=== PATIENT | female | born 2000 | race Two or more races ===

== ENCOUNTER 2025-02-07 12:26 | Emergency (ER) | payer MEDICAID, SELFPAY ==
--- NOTE | 2025-02-07 12:37 | XR_ITS ---
Examination: CT abdomen and pelvis without contrast. Coronal 3-D reconstructions. Sagittal 2-D reconstructions. Date and time of exam: 02/07/2025 at 2:06 p.m. CTDI: vol (mGy): 5.70 DLP: (mGycm): 274 Technique: Axial images of the abdomen have been obtained, 3 mm slice thickness Intravenous contrast material has not been administered. Low dose protocols were performed. One or more of the following dose reduction techniques were used; automated exposure control, adjustment of the mA and/or KV according to patient size, use of iterative reconstruction technique. CLINICAL HISTORY: Hematuria for the last 2 days, right-sided flank pain Findings: In the left kidney there there is an exquisitely tiny early developing calculus in the midportion of the left renal medulla, seen on axial sequence 8 image 81, and coronal sequence 4 image 68.. No other abnormalities are seen in the left kidney. On the right there is slight diffuse swelling of the kidney, there is pelvic caliectasis and there is minimal but definite dilatation of the entire right ureter down to the mid pelvis on the right. Here, at a point about 6 cm above the UVJ there is a tiny 3 mm diameter calculus creating obstructive uropathy In all other respects, the CT appearance of the liver spleen and adrenal glands and pancreas and para-aortic region appears normal. Bowel gas pattern in the small and large bowel appear all right. The uterus is retroverted in the pelvis, otherwise normal. IMPRESSION: 1. There is a 3 mm calculus in the distal right ureter creating mild definite obstructive uropathy 2 there is an exquisitely tiny calculus in the midpole medulla of the left kidney, not currently producing any problems 3. The study is otherwise entirely normal. The patient does have a retroverted uterus.
[2025-02-07 12:39] VITALS: BP 116/80; PULSE 97; RESP 16; TEMP 37.2; O2SAT 98; BMI 23.2
[2025-02-07 13:36] LABS: Collection Type, Urine Clean Catch; Squamous Epithelial Cell,Urine 0 /hpf (0-5)
[2025-02-07 13:36] LABS: Basophils # (Auto) 0.0 Thou/mm3 (0.0-0.2); Basophils % (Auto) 0 % (0-2.5); Eosinophils # (Auto) 0.0 Thou/mm3 (0.0-0.5); Eosinophils % (Auto) 0 % (0-10); Hematocrit 39.3 % (36.0-46.0); Hemoglobin 13.4 g/dL (12.0-16.0); Immature Granulocytes Auto 0.02 Thou/mm3 (0.00-0.00); Lymphocytes # (Auto) 1.4 Thou/mm3 (1.0-4.8); Lymphocytes % (Auto) 17 % (10-50); Mean Corpuscular HGB Conc 34.1 g/dl (31.0-37.0); Mean Corpuscular Hemoglobin 27.5 pg (25.0-35.0); Mean Corpuscular Volume 81 fL (80-100); Monocytes # (Auto) 0.6 Thou/mm3 (0.0-0.8); Monocytes % (Auto) 7 % (0-12); Neutrophils # (Auto) 6.2 Thou/mm3 (1.8-7.7); Neutrophils % (Auto) 75 % (37-80); Nucleated Red Blood Cell # 0.00 Thou/mm3 (0.00-0.00); Nucleated Red Blood Cell % 0 /100 WBC (0); Platelet Count 251 Thou/mm3 (140-440); RDW Standard Deviation 38.1 fL (36.4-46.3); Red Blood Count 4.88 Miln/mm3 (4.00-5.20); White Blood Count 8.2 Thou/mm3 (3.6-11.0)
[2025-02-07] MEDS: KETOROLAC INJ 30 MG/ML VIAL IVP (13:45)
[2025-02-07] MEDS: SODIUM CHLORIDE 0.9% 1000 ML 1,000 ML 999 ML IV (13:45)
[2025-02-07] MEDS: ONDANSETRON INJ 2 MG/ML INJ 2 ML 4 MG IVP (13:46)
[2025-02-07 13:51] LABS: HCG Qualitative,Urine Negative
[2025-02-07 13:52] LABS: Bilirubin,Urine Negative (Negative); Blood,Urine 3+ (Negative); Glucose, Urine Negative (Negative); Ketones,Urine 3+ (Negative); Leukocyte Esterase,Urine Positive (Negative); Nitrite,Urine Negative (Negative); PH,Urine 6.0 (5.0-7.0); Protein,Urine 1+ (Neg - Trace); RBC,Urine 6102 /hpf (0-3); Specific Gravity,Urine 1.026 (1.001-1.035); Urobilinogen,Urine Negative mg/dL (0.0-1.0); WBC,Urine 6 /hpf (0-5)
[2025-02-07 13:55] LABS: Clarity,Urine Cloudy (Clear/Hazy); Color,Urine Light-Red (Lt Yel-Yel)
[2025-02-07 14:02] LABS: Alanine Aminotransferase 10 U/L (10-49); Albumin, Serum 4.7 gm/dL (3.5-5.0); Albumin/Globulin Ratio 1.5 (1.2-2.2); Alkaline Phosphatase 73 U/L (46-116); Anion Gap 13 (7-16); Aspartate Amino Transferase 18 U/L (0-34); BUN/Creatinine Ratio 14 Ratio (12-20); Bilirubin,Total 0.6 mg/dL (0.3-1.2); Blood Urea Nitrogen 10 mg/dL (9-23); Calcium 9.7 mg/dL (8.3-10.6); Calcium (Corrected) 9.7 mg/dL (8.5-10.1); Carbon Dioxide 23.4 mMol/L (20.0-31.0); Chloride 106 mMol/L (98-107); Creatinine (Component) 0.7 mg/dL (0.6-1.3); Estimated Creatinine Clearance 90.0 mL/min (>60); Globulin 3.2 gm/dL (2.3-3.5); Glucose 96 mg/dL (74-106); Lipase 26 U/L (12-53); Osmolality,Calculated 282 (275-295); Potassium 3.6 mMol/L (3.4-5.1); Sodium 142 mMol/L (136-145); Total Protein 7.9 gm/dL (5.7-8.2); eGFR > 60 See Note
[2025-02-07] MEDS: TAMSULOSIN HCL 0.4 MG CAPSULE PO (15:33)
[2025-02-07 15:34] VITALS: BP 115/80; PULSE 78; RESP 16; TEMP 37; O2SAT 98
--- NOTE | 2025-02-07 15:35 | EDNOTE_ITS ---
ED Female Urogenital RME/HPI General Chief complaint: Back Pain/Injury Stated complaint: R) LOWER BACK PAIN, DIFF URINATING, N/V Time Seen by Provider: 02/07/25 12:35 Arrival date/time: 02/07/25 12:26 This is a case of 24-year-old female with no medical history came in in the emergency room due to right flank pain radiating to the right side of the abdomen for 4 days associated with blood in the urine and painful urination persistence of the symptoms this patient decided to sought consult here in the emergency room Limitations: no limitations Related Data Home Medications ?Medication ?Instructions ?Recorded ?Confirmed ferrous sulfate 324 mg (65 mg 324 mg PO TID 04/29/20 0 04/29/20 iron) tablet,delayed release Previous Rx's ?Medication ?Instructions ?Recorded hydrocodone 5 mg-acetaminophen 325 1 tab PO Q12H PRN p ain #7 tabs 10/15/21 mg tablet ibuprofen 400 mg tablet 400 mg PO TID PRN pain #14 t abs 10/15/21 cephalexin 500 mg capsule 500 mg PO QID #40 caps 02/07 hydrocodone 5 mg-acetaminophen 325 1 tab PO Q6H PRN pa in #16 tabs 02/07/25 mg tablet ondansetron 4 mg disintegrating 4 mg PO Q8H #20 tabs 1 04/10/24 tablet tamsulosin 0.4 mg capsule 0.4 mg PO QDAY 10 days #10 c aps 02/07/25 Allergies Allergy/AdvReac Type Severity Reaction Status Date / Time No Known Allergies Allergy Verified 02/07/25 12:29 Review of Systems Review of Systems Systems Reviewed: All systems reviewed, normal except as documented Past Medical History Past Medical History CARDIAC: Negative Cardiac Disorders or Congestive Heart Failure RESPIRATORY: Negative Chronic Obstructive Pulmonary Disease (COPD) or Asthma GENITOURINARY: Negative Renal Disease ENDOCRINE: Negative Diabetes Mellitus Type 1 or Diabetes Mellitus Type 2 HEMATOLOGIC: Positive Anemia; Negative Sickle Cell Disease PSYCHO/SOCIAL: Positive Depression and Anxiety OTHER HISTORY: Positive Blood Transfusions Social History SMOKING STATUS: Never smoker SUBSTANCE USE: does not use ED Exam General Limitations: Present no limitations General appearance: Present alert, in no apparent distress and other (Patient is awake alert oriented not in distress nontoxic looking well-hydrated well- nourished) Head Head exam: Present atraumatic, normocephalic and normal inspection Eye Eye exam: Present normal appearance, PERRL and EOMI ENT ENT exam: Present normal exam, normal oropharynx and mucous membranes moist Neck Neck exam: Present normal inspection, full ROM and trachea midline Chest Chest inspection: Present normal inspection and symmetric chest wall rise Respiratory Respiratory exam: Present normal lung sounds bilaterally Cardiovascular Cardiovascular exam: Present regular rate, normal rhythm and normal heart sounds Abdominal Exam Abdominal exam: Present soft, tenderness (Mild tenderness on the right side of the abdomen and right flank no CVA tenderness bladder is not distended not tender) and normal bowel sounds; Absent distention, guarding, rebound, rigidity, diminished bowel sounds, hyperactive bowel sounds, hypoactive bowel sounds, organomegaly, psoas sign, obturator sign, Baltazar's sign or tenderness at McBurney's Point Extremities Exam Extremities exam: Present normal inspection and full ROM Back Exam Back exam: Present normal inspection and full ROM Neurological Exam Neurological exam: Present alert, oriented X3, CN II-XII intact, normal gait and reflexes normal; Absent motor sensory deficit Psychiatric Psychiatric exam: Present normal affect, normal mood and other (Excellent skin turgor) Skin Skin exam: Present warm, dry, intact and normal color Course Quality Measures none Orders Category Date Time Status Insert IV NOW Care 02/07/25 13:[address] abdomen pelvis wo con Stat Exams 02/07/25 12:37 Completed CBC Stat Lab 02/07/25 13:19 Completed Comprehensive Metabolic Panel Stat Lab 02/07/25 13:19 Completed HCG Qualitative,Urine Stat Lab 02/07/25 13:28 Completed Lipase Stat Lab 02/07/25 13:19 Completed Urinalysis Stat Lab 02/07/25 13:28 Completed Ketorolac Inj [Toradol Inj] Med 02/07/25 12:37 Discontinued 30 mg IVP X1 ONE Ondansetron Inj [Zofran Inj] Med 02/07/25 12:37 Discontinued 4 mg IVP X1 ONE Sodium Chloride 0.9% 1000 ml [Ns] 1,000 ml Med 02/07/25 12:37 Discontinued IV 999 mls/hr Tamsulosin HCl [Flomax] Med 02/07/25 15:18 Discontinued 0.4 mg PO X1 ONE Vital Signs Vital signs: Vital Signs Temperature 98.9 F 02/07/25 12:39 Pulse Rate 97 02/07/25 12:39 Respiratory Rate 16 02/07/25 12:39 Blood Pressure 116/80 02/07/25 12:39 Pulse Oximetry (%) 98 02/07/25 12:39 Oxygen Delivery Method Room Air 02/07/25 12:39 Oxygen saturation is 98% in room air Urogenital - Female MDM Narrative MDM Narrative:: This is a case of 24-year-old female with no medical history came in in the emergency room due to right flank pain radiating to the right side of the abdomen for 4 days associated with blood in the urine and painful urination persistence of the symptoms this patient decided to sought consult here in the emergency room physical examination patient is awake alert oriented not in distress nontoxic looking well-hydrated well-nourished patient vital signs BP stable not tachycardic not tachypneic afebrile and nonhypoxic abdominal exam is benign nonsurgical no guarding no rebound no rigidity mild tenderness on the right flank and right side of the abdomen but negative psoas negative straight or negative Rovsing's negative McBurney's negative Baltazar sign negative CVA tenderness bladder is not distended not tender the rest of the physical examination and neurological exam is normal and unremarkable blood test showed no leukocytosis no anemia kidney and liver function is normal no electrolyte imbalance lipase is normal patient noted to have large blood in the urine and WBC in the urine suggestive of urinary tract infection and microscopic hematuria CT scan showeThere is a 3 mm calculus in the distal right ureter creating mild definite obstructive uropathyd based on the physical examination and history patient noted to have nephrolithiasis and hematuria a bolus of normal saline was given along with the Toradol for pain and Zofran for nausea vomiting after 2 hours patient was reassessed patient pain was resolved no recurrence of vomiting patient was given also Flomax for nephrolithiasis I have a long discussion with the patient patient needs to see a urologist for further evaluation and treatment of her kidney stone patient was prescribed also with cephalexin for urinary tract infection patient with this advised to follow-up with PCP in 2 days for reevaluation upon discharge patient is pain-free and stable to be discharged for any worsening symptoms or any emergent concern return precaution in the ER is advised Patient was discharged with comfortable condition walking with stable gait. Patient verbalized no further complains explained diagnosis and answered patient question. Patient is comfortable with the proposed management plan including the need to follow up with his/her primary care physician and any specialist if applicable Discussed patient for any urgent condition or worsening sx, He/She needed to go to emergency room immediately or call 911. Patient acknowledge the responsibility to follow up as instructed and to monitor her/his symptoms. For any persistence of the symptoms for more than 3-5 days return precaution advised. Discussed the result of the test and was given printed discharge instruction Patient data External records reviewed:: [facility] previous records Clinical information provided by:: patient Social determinants that could affect healthcare access:: none Patient has the following chronic illnesses:: None How is presenting disease/condition affected by chronic disease/condition?: no chronic disease Evaluation data The following diagnostics were reviewed and interpreted by me:: lab results and radiology exam(s) Lab and/or radiology exams considered but not ordered:: Reviewed Interpretation Summary: Reviewed Medications / Prescriptions Medications or Prescriptions considered but not ordered:: Given Medication administrations:: Medication Administration History Discontinued Medications Sodium Chloride (Ns) 1,000 mls @ 999 mls/hr IV .Q1H1M ONE Stop: 02/07/25 13:37 Last Infusion: 02/07/25 14:59 Dose: Infused Documented By: Admin: 02/07/25 13:45 Dose: 999 mls/hr Documented By: BD Ketorolac Tromethamine (Ketorolac Inj 30 Mg/Ml Vial) 30 mg IVP X1 ONE Stop: 02/07/25 12:38 Last Admin: 02/07/25 13:45 Dose: 30 mg Documented By: BD Ondansetron HCl (Ondansetron Inj 2 Mg/Ml Inj 2 Ml) 4 mg IVP X1 ONE; Protocol Stop: 02/07/25 12:38 Last Admin: 02/07/25 13:46 Dose: 4 mg Documented By: BD Tamsulosin HCl (Tamsulosin Hcl 0.4 Mg Capsule) 0.4 mg PO X1 ONE Stop: 02/07/25 15:19 Last Admin: 02/07/25 15:33 Dose: 0.4 mg Documented By: BD Given Consultations Consultation(s) initiated? (list below): No Diagnosis Urogenital Female Differential Diagnosis: urinary tract infection and other (Pyelonephritis nephrolithiasis cystoscopy) Most likely diagnosis given after review of the tests above:: Nephrolithiasis urinary tract infection Admission Indicated Admission indicated?: not indicated Explain why admission is indicated or not indicated:: Not indicated Admission Request Was there a request for admission?: No Admission Attestation Admission request attestation: Not indicated Disposition Plan Disposition Plan: Discharge Discharge Attestation Discharge Attestation: The patient and all family members were given an opportunity to ask questions and understood the discharge instructions. Discharge instructions specifically effects, indications for sooner follow up or return to the emergency department, and the expected course of current diagnosis. Patient condition: Stable Discharge Plan Plan Patient Disposition: HOME (Self Care) Patient condition on transfer: Stable Prescriptions/Referrals Prescriptions/Med Rec: New cephalexin 500 mg capsule 500 mg PO QID Qty: 40 0RF hydrocodone-acetaminophen 5-325 mg tablet 1 tab PO Q6H MDD max 4 tabs per day PRN (Reason: pain) Qty: 16 0RF tamsulosin 0.4 mg capsule 0.4 mg PO QDAY 10 Days Qty: 10 0RF ondansetron 4 mg tablet,disintegrating 4 mg PO Q8H Qty: 20 0RF No Action ferrous sulfate 324 mg (65 mg iron) Tablet,Delayed Release (Dr/Ec) 324 mg PO TID ibuprofen 400 mg tablet 400 mg PO TID PRN (Reason: pain) Qty: 14 0RF hydrocodone-acetaminophen 5-325 mg tablet 1 tab PO Q12H MDD 2 PRN (Reason: pain) Qty: 7 0RF Referrals: No Primary/Family,Physician [Primary Care Provider] - In 1 week Problem List Clinical Impression: Nephrolithiasis, Acute flank pain, Urinary tract infection, Hematuria Patient/Caregiver Discharge Instructions Education Materials: Urinary Tract Infections in Women, Treating Kidney Stones ..., ED Hematuria Additional Instructions: It is very important to see a urologist for further evaluation and treatment of your kidney stone follow-up with your primary care physician in 2 days for reevaluation and to be referred to urologist for further evaluation and treatment of your kidney stone increase water intake keep hydrated Pedialyte Gatorade cranberry juice was advised for hydration worsening symptoms or any emergent concern return to the emergency room immediately or call 911 take your medication as directed finish the course of antibiotic Print Language: Frisian Stand Alone Forms: Nahed Award Info., Patient Portal Info Letter PA/SENIOR [employer] DATA ARCHITECT Supervising Physician PA/SENIOR J[employer] DATA ARCHITECT Supervising Physician: Dr. gomez
== END 2025-02-07 15:41 | disposition home or self-care (01) ==
PROVIDERS: Nurse Practitioner Family; Emergency Provider Family Medicine
DX: N20.0 Calculus of kidney (principal); N39.0 Urinary tract infection, site not specified
CPT/HCPCS: 36415; 74176; 80053; 81001; 81025; 83690; 85025; 96361; 96374; 96375; 99284; J1885; J2405; J7030; A9270